=== PATIENT | female | born 1970 | race Caucasian/White ===

== ENCOUNTER 2023-11-29 13:41 | Emergency (ER) | payer OTHER, SELFPAY ==
[2023-11-29] VITALS (12 sets, daily range): BP systolic 155–156; BP diastolic 85–88; PULSE 95–109; RESP 14–22; TEMP 36.8; O2SAT 93–98; BMI 34.7
[2023-11-29 13:47] LABS: Glucometer 100 mg/dL (74-106)
--- NOTE | 2023-11-29 13:48 | ECG_ITS ---
[facility] Test Date: 2023-11-29 Pat Name: LUCIA LEBRON Department: Room: - Gender: Female Health Services Coordinator: : 1970 Requested By: Order Number: [id number] Reading MD: ALEXI ARCEO Measurements Intervals [place] Rate: 97 P: 78 [place]: 152 QRS: 94 QRSD: 84 T: 18 QT: 342 QTc: 396 Interpretive Statements [address]/T wave changes in inferolateral leads, myocardial ischemia can't be excluded 9130 borderline ECG No previous ECG available for comparison Electronically Signed On 11-30-2023 7:22:05 EST by ALEXI ARCEO
--- NOTE | 2023-11-29 13:49 | ED.GENADUL1 ---
HPI - General Adult General Chief complaint: Altered Mental Status Stated complaint: high blood sugar Time Seen by Provider: 11/29/23 13:45 Source: patient Mode of arrival: ambulance Limitations: no limitations History of Present Illness HPI narrative: [id number] female presented to the emergency department for status. Her daughter found her sitting on the floor and she called paramedics. They found that her blood sugar was high, nearly 500, and they transported her here. En route she became more responsive and is now fully oriented. She remembers working out this morning at the gym and did not eat much food. She does not have any physical complaints such as headache or chest pain. She states her legs hurt but that is from working out at the gym. Related Data Allergies Allergy/AdvReac Type Severity Reaction Status Date / Time No Known Drug Allergies Allergy Verified 11/29/23 13:47 Review of Systems ROS Narrative A ten point review of systems is negative except as noted above. PFSH PFSH Social History Smoking status: Never smoker Exam Narrative Exam Narrative: Nurses note and vital signs reviewed and patient is not hypoxic. General: The patient appears well and in no apparent distress. Patient is resting comfortably on cart. Skin: Warm, dry, no pallor noted. There is no rash noted. Head: Normocephalic, atraumatic Eye: Normal conjunctiva, no drainage Ears, Nose, Mouth, and Throat: oral mucosa is moist. Nares patent. Cardiovascular: Regular Rate and Rhythm Respiratory: Patient is in no distress, no accessory muscle use, lungs are clear to auscultation, no wheezing, rales or rhonchi Back: non-tender GI: Soft and nontender Musculoskeletal: The patient has no evidence of calf tenderness, no pitting edema, symmetrical pulses noted bilaterally Neurological: A&O, normal speech Psychiatric: Cooperative Constitutional Vital Signs, click to edit/add: Last Vital Signs Temp 98.2 F 11/29/23 13:42 Pulse 103 H 11/29/23 15:10 Resp 22 11/29/23 15:10 BP 156/85 H 11/29/23 13:45 Pulse Ox 96 11/29/23 15:10 O2 Del Method Room Air 11/29/23 13:42 Course Vital Signs Vital signs: Vital Signs Temperature 98.2 F 11/29/23 13:42 Pulse Rate 108 H 11/29/23 13:42 Respiratory Rate 16 11/29/23 13:42 Blood Pressure 156/85 H 11/29/23 13:42 Pulse Oximetry 97 11/29/23 13:42 Oxygen Delivery Method Room Air 11/29/23 13:42 Temperature 98.2 F 11/29/23 13:42 Pulse Rate 103 H 11/29/23 15:10 Respiratory Rate 22 11/29/23 15:10 Blood Pressure 156/85 H 11/29/23 13:45 Pulse Oximetry 96 11/29/23 15:10 Oxygen Delivery Method Room Air 11/29/23 13:42 Medical Decision Making MDM Narrative Medical decision making narrative: More history was obtained after the patient's daughter arrived. The patient also remembers better now as well. She had worked out at the gym and she believes that her blood sugar dropped. She had not eaten and just before the paramedics got there she had taken a pop tart and glucose gel and this is likely falsely and transiently elevated her blood sugar. She has been able to eat and her blood sugar is normalized and she is able to be discharged home. Treatment diagnosis and follow-up were discussed with the patient. Differential Diagnosis Differential Diagnosis: Hypoglycemia, hyperglycemia, syncope Lab Data Lab results reviewed: Yes I reviewed the patient's lab results Labs: Lab Results 11/29/23 11/29/23 Range/Units 13:45 13:50 WBC 15.7 H (4.0-11.0) 10^3/uL RBC 4.80 (4.20-5.40) 10^6/uL Hgb 13.5 (12.0-16.0) g/dL Hct 42.9 (36.0-48.0) % MCV 89.4 (81.0-99.0) fL MCH 28.1 (26.7-34.0) pg MCHC 31.5 (29.9-35.2) g/dL RDW 13.9 (11.0-15.0) % Plt Count 303 (150-450) 10^3/uL MPV 9.1 L (9.5-13.5) fL Neut % (Auto) 81.4 H (43.0-75.0) % Lymph % (Auto) 11.3 L (20.5-60.0) % [place] % (Auto) 5.7 (1.7-12.0) % Eos % (Auto) 0.7 L (0.9-7.0) % Baso % (Auto) 0.6 (0.2-2.0) % Neut # (Auto) 12.8 H (1.4-6.5) 10^3/uL Lymph # (Auto) 1.8 (1.2-3.8) 10^3/uL [place] # (Auto) 0.9 H (0.3-0.8) 10^3/uL Eos # (Auto) 0.1 (0.0-0.7) 10^3/uL Baso # (Auto) 0.1 (0.0-0.1) 10^3/uL Abs Immat Gran (auto) 0.05 H (0.00-0.03) 10^3/uL Imm/Tot Granulo (auto) 0.3 (0.0-0.5) % Sodium 139 (136-145) mmol/L Potassium 4.0 (3.5-5.1) mmol/L Chloride 103 (98-107) mmol/L Carbon Dioxide 29.5 (21.0-32.0) mmol/L Anion Gap 10.5 BUN 24.0 H (7.0-18.0) mg/dL Creatinine 1.03 H (0.55-1.02) mg/dL Est GFR ( Amer) >60 (>=60) Est GFR (Non-Af Amer) 56 L (>=60) BUN/Creatinine Ratio 23.3 Glucose 68 L (74-106) mg/dL Calcium 9.2 (8.5-10.1) mg/dL POC Glucose 100 (74-106) mg/dL ECG Data Attestation: I personally reviewed and interpreted this ECG as follows: (EKG on my interpretation shows normal sinus rhythm with no acute changes and a rate of 97.) Discharge Plan Discharge Chief Complaint: Altered Mental Status Clinical Impression: Hypoglycemia Patient Disposition: Home, Self-Care Time of Disposition Decision: 15:30 Condition: Good Mode of Transportation: Private Vehicle Instructions: Hypoglycemia in a Person with Diabetes (ED) Stand Alone Forms: Portal Instructions Referrals: OSORIO WHITESIDE [Physician] - 1 week
[2023-11-29 14:00] LABS: Basophils Absolute Auto 0.1 10^3/uL (0.0-0.1); Basophils Percent Auto 0.6 % (0.2-2.0); Eosinophils Absolute Auto 0.1 10^3/uL (0.0-0.7); Eosinophils Percent Auto 0.7 % (0.9-7.0); Hematocrit 42.9 % (36.0-48.0); Hemoglobin 13.5 g/dL (12.0-16.0); Immature Granulocytes Abs Auto 0.05 10^3/uL (0.00-0.03); Immature Granulocytes Pct Auto 0.3 % (0.0-0.5); Lymphocytes Absolute Auto 1.8 10^3/uL (1.2-3.8); Lymphocytes Percent Auto 11.3 % (20.5-60.0); Mean Corpuscular HGB Conc 31.5 g/dL (29.9-35.2); Mean Corpuscular Hemoglobin 28.1 pg (26.7-34.0); Mean Corpuscular Volume 89.4 fL (81.0-99.0); Mean Platelet Volume 9.1 fL (9.5-13.5); Monocytes Absolute Auto 0.9 10^3/uL (0.3-0.8); Monocytes Percent Auto 5.7 % (1.7-12.0); Neutrophils Absolute Auto 12.8 10^3/uL (1.4-6.5); Neutrophils Percent Auto 81.4 % (43.0-75.0); Platelet Count 303 10^3/uL (150-450); Red Cell Distribution Width 13.9 % (11.0-15.0); White Blood Count 15.7 10^3/uL (4.0-11.0)
[2023-11-29 14:09] LABS: Anion Gap 10.5; BUN Creatinine Ratio 23.3; Calcium 9.2 mg/dL (8.5-10.1); Carbon Dioxide 29.5 mmol/L (21.0-32.0); Chloride 103 mmol/L (98-107); Estimated GFR (African America >60 (>=60); Estimated GFR (Non-African Ame 56 (>=60); Glucose 68 mg/dL (74-106); Sodium 139 mmol/L (136-145)
[2023-11-29 15:40] LABS: Glucometer 171 mg/dL (74-106)
== END 2023-11-29 15:52 | disposition home or self-care (01) ==
PROVIDERS: Emergency Provider Emergency Medicine
DX: E11.649 Type 2 diabetes mellitus with hypoglycemia without coma (principal)
CPT/HCPCS: 36415; 36416; 80048; 82948; 85025; 93005; 99284

== ENCOUNTER 2025-08-19 09:57 | Emergency (ER) | payer OTHER, SELFPAY ==
[2025-08-19 09:58] VITALS: BP 192/99; PULSE 98; TEMP 36.6; O2SAT 97; BMI 31.9
--- NOTE | 2025-08-19 10:15 | ED_ITS ---
HPI HPI - General Adult General Chief complaint: Recheck/Abnormal Lab/Rx Stated complaint: HYPOGLYCEMIA Time Seen by Provider: 08/19/25 09:58 Source: patient Mode of arrival: walk-in Limitations: no limitations History of Present Illness HPI narrative: Patient is a 54-year-old female, history significant for insulin-dependent type 2 diabetes, presenting to the emergency department for evaluation of a hypoglycemic event. Patient works as a enterprise application developer, and was cleaning when she became diaphoretic, nauseous, and lightheaded. At work, they checked her blood glucose which was noted to be 35. She took sugar tablets and EMS was called. On arrival to our ED, her blood sugar is 88. She is now back to her baseline and has no acute complaints. She denies chest pain, shortness of breath, a bdominal pain, nausea, vomiting, or any other concerns. She takes 70/30 insulin 24 units, with no recent changes in her dosing. She took her insulin a few hours ago. She is on no other diabetic medications, not on a sulfonylurea. Related Data Allergies Allergy/AdvReac Type Severity Reaction Status Date / Time No Known Drug Allergies Allergy Verified 08/19/25 09:58 Opioid HPI Opioid Management Most Recent Opioid Data: Last Pain Scale 6 11/29/23, 13:50 Review of Systems ROS Status of ROS 10 or more systems reviewed and unremark able except as noted in history and below PFSH PFSH Social History Smoking status: Never smoker Little interest or pleasure in doing things: not at all Feeling down, depressed, or hopeless: not at all Exam Narrative Exam Narrative: CONSTITUTIONAL: Well-appearing, answering questions and following commands appropriately SKIN: Was warm and dry. EYES: Sclerae white. EARS, NOSE, THROAT: Moist oral mucosa. RESPIRATORY: Clear to auscultation bilaterally, no wheezes, crackles, or stridor, no use of accessory muscles CARDIOVASCULAR: Normal rate and regular rhythm. There is no S3, S4, murmur, rub. GASTROINTESTINAL: Abdomen is nondistended. MUSCULOSKELETAL: No peripheral edema. NEUROLOGIC: Patient is awake and alert. Facies were symmetrical. Constitutional Vital Signs, click to edit/add: Last Vital Signs Temp 97.8 F 08/19/25 09:58 Pulse 110 H 08/19/25 12:07 Resp 16 08/19/25 12:07 BP 168/102 H 08/19/25 12:07 Pulse Ox 98 08/19/25 12:07 O2 Del Method Room Air 08/19/25 12:07 Course Vital Signs Vital signs: Vital Signs Temperature 97.8 F 08/19/25 09:58 Pulse Rate 98 H 08/19/25 09:58 Respiratory Rate 18 08/19/25 09:58 Blood Pressure 192/99 H 08/19/25 09:58 Pulse Oximetry 97 08/19/25 09:58 Oxygen Delivery Method Room Air 08/19/25 09:58 Temperature 97.8 F 08/19/25 09:58 Pulse Rate 110 H 08/19/25 12:07 Respiratory Rate 16 08/19/25 12:07 Blood Pressure 168/102 H 08/19/25 12:07 Pulse Oximetry 98 08/19/25 12:07 Oxygen Delivery Method Room Air 08/19/25 12:07 Medical Decision Making MDM Narrative Medical decision making narrative: Patient is a 54-year-old female, history significant for insulin-dependent type 2 diabetes, presenting to the emergency department from work for hypoglycemic event. She was noted to be hypoglycemic to 35 while at work, took 3 sugar tablets, and no other blood glucose of 88 here in the ED. She is awake, alert, mentating appropriately and is currently asymptomatic and at her baseline. The patient believes the hypoglycemic event was because she did not eat enough food this morning, and also overexerted herself at work. She was given juice, crackers, granola bar, which she tolerated without issues. Repeat blood glucose after 45 minutes demonstrated maintenance of her blood glucose level at 123. I do believe the patient is stable for discharge. They were instructed to follow up with her PCP for further diabetic management. Return precautions were given including any new or worsening symptoms. Patient is a safe ride home. Patient understands and agrees to the plan. FINAL IMPRESSION: #Acute hypoglycemia, resolved #History of insulin-dependent type 2 diabetes DISPOSITION: Discharged home CONDITION: Good Medical Records Medical records reviewed: Yes I reviewed the patient's medical records Lab Data Lab results reviewed: Yes I reviewed the patient's lab results Labs: Lab Results 08/19/25 08/19/25 Range/Units 10:01 11:07 POC Glucose 88 123 H (74-106) mg/dL Discharge Plan Discharge Chief Complaint: Recheck/Abnormal Lab/Rx Clinical Impression: Hypoglycemia Patient Disposition: Home, Self-Care Time of Disposition Decision: 11:56 Condition: Good Mode of Transportation: Private Vehicle Print Language: Martiniquais Instructions: Diabetes and Nutrition (ED) Referrals: Physician,Non-Staff, MD [Physician] - 1 week Discharge Date/Time: 08/19/25 12:10
[2025-08-19 10:42] VITALS: BP 188/125; PULSE 78; O2SAT 97
--- OUTSIDE RECORDS SUMMARY | 2025-08-19 10:56 | XMS_ITS | Clinical Summary ---
Author Organization [facility] Address [address] [place] [address] Care Team Providers Care Trademark Attorney Name Role Phone Unavailable Primary Care Provider Unavailabl e Social History Tobacco UseTypesPacks/DayYears UsedDateSmoking Tobacco: Never Assessed CommentsUnknownSex and Gender InformationValueDate RecordedSex Assigned at Not on fileLegal SxmOfnchf34/15/2023 11:01 PM EDTGender IdentityNot on file Sexual OrientationNot on file Plan of Treatment Not on file
--- OUTSIDE RECORDS SUMMARY | 2025-08-19 11:00 | XMS_ITS | CCD ---
Author Organization [facility] Inform ion Partnership [facility] Care Team Providers Care Head Stock Operator Name Role Phone DR OSORIO WHITESIDE Primary Care Unavailable DR GERMANIA WANG Consulting Unavailable VINOD ANN Attending Unavailable VINOD ANN Admitting Unavailable VINOD ANN Consulting Unavailable Problems Problem ClassificationProblemDateDocumented DateEpisodic/ChronicDiabetes mellitus with complications (4 sources)Type 2 diabetes mellitus with hypoglycemia without coma; Translations: [TYP 2 DM W/HYPOGLYCEMIA W/OCOMA]Onset: [id number] aftercare (1 source)meterman (current) use of insulin; Translations: [SENIOR LIVING CURRENT USE OF INSULIN]Onset: 15-90-0329OfrbwiouUusekdwn codes; unclassified (1 source)Disorientation, unspecified; Translations: [DISORIENTATION UNSPECIFIED]Onset: 09-33-3642Owgedfbk Results Test NameValueInterpretationReference RangeFacilityCBC AUTO DIFFon 05-23-2022 BASO #0.1 103/ulNormal0.0-0.1[facility] CenterComment on above:Performed By: #### CBC #### [facility] [address] [address] [address] Dick Hannahphils/100 WBC (Bld)0.6 %Normal0.2-2.0[facility] Comment on above:Performed By: #### CBC #### [facility] [address] [address] [address] Dick Pate #0.2 103/ulNormal0.0-0.7[facility] RehabilitationComment on above: Performed By: #### CBC #### [facility] [address] [address] [address] Dick Toureosinophils/100 WBC (Bld)2.4 %Normal0.9-7.0[facility] Comment on above:Performed By: #### CBC #### [facility] [address] [place] [address] Dr. Dick Tourerythrocyte distribution width (RBC) [Ratio]13.5 %Ypogzn20.0-15.0 [facility] RehabilitationComment on above:Performed By: #### CBC #### [facility] [address] [place] [address] Dr. Dick GuerraHematocrit (Bld) [Volume fraction]40.5 %Fyzbpr74.0-48.0[facility] RehabilitationComment on above:Performed By: #### CBC #### [facility] [address] [place] [address] Dr. Dick GuerraHemoglobin (Bld) [Mass/Vol]13.1 g/eBInnces13.0-16.0[facility] RehabilitationComment on above:Performed By: #### CBC #### [facility] [address] [place] [address] Dr. Dick GuerraIG #0.02 10e3/ulNormal0.00-0.03[facility] RehabilitationComment on above:Performed By: #### CBC #### [facility] [address] [place] [address] Dr. Dick GuerraIG %0.2 %Normal0.0-0.5[facility] RehabilitationComment on above: Performed By: #### CBC #### [facility] [address] [place] [address] Dr. Dick GascaMPH #2.0 103/ulNormal1.2-3.8[facility] RehabilitationComment on above:Performed By: #### CBC #### [facility] [address] [place] [address] Dr. Dick Gascamphocytes/100 WBC (Bld)23.8 %Mdevkn14.5-60.0[facility] RehabilitationComment on above:Performed By: #### CBC #### [facility] [address] [place] [address] Dr. Dick Roblero DIFF REQNONormalThe [facility] RehabilitationComment on above: Performed By: #### CBC #### [facility] [address] [place] [address] Dr. Dick Kline (RBC) [Entitic mass]28.2 elMcqnfc51.7-34.0[facility] RehabilitationComment on above:Performed By: #### CBC #### [facility] [address] [place] [address] Dr. Dick Kline (RBC) [Mass/Vol]32.3 g/hQWmdqjd93.9-35.2[facility] RehabilitationComment on above:Performed By: #### CBC #### [facility] [address] [place] [address] Dr. Dick Kline (RBC) [Entitic vol]87.1 tPXmcqss11.0-99.0[facility] RehabilitationComment on above:Performed By: #### CBC #### [facility] [address] [place] [address] Dr. Dick Stovall #0.6 103/ulNormal0.3-0.8[facility] RehabilitationComment on above:Performed By: #### CBC #### [facility] [address] [place] [address] Dr. Dick Shepardocytes/100 WBC (Bld)6.6 %Normal1.7-12.0[facility] Comment on above:Performed By: #### CBC #### [facility] [address] [place] [address] Dr. Dick Jacinto #5.6 103/ulNormal1.4-6.5[facility] RehabilitationComment on above:Performed By: #### CBC #### [facility] [address] [place] [address] Dr. Dick Mooreutrophils/100 WBC (Bld)66.4 %Aatxev34.0-75.0[facility] RehabilitationComment on above:Performed By: #### CBC #### [facility] [address] [address] [address] Dick Jaureguilet mean volume (Bld) [Entitic vol]9.0 fLCritically low 9.5-13.5The [facility] on above:Performed By: #### CBC #### [facility] [address] [place] [address] Dr. Dick GuerraPLT254 103/ihAcvfde922-443Pup [facility] on above: Performed By: #### CBC #### [facility] [address] [place] [address] Dr. Dick GuerraRBC4.65 106/ulNormal4.20-5.40The [facility] on above:Performed By: #### CBC #### [facility] [address] [place] [address] Dr. Dick GuerraWBC8.4 103/ulNormal4.0-11.0The [facility] on above: Performed By: #### CBC #### [facility] [address] [place] [address] Dr. Dick GuerraPROF 14(COMP METB)on 92-05-2355Ourouhb [Mass/Vol]3.6 g/dLNormal 3.4-5.0The [facility] on above:Performed By: #### CMP #### [facility] [address] [place] [address] Dr. Dick GuerraAlbumin/Globulin [Mass ratio]1.1 {ratio}NormalThe [facility] on above:Performed By: #### CMP #### [facility] [address] [place] [address] Dr. Dick Ram [Catalytic activity/Vol]69 U/XNqjxmc45-638Qdl [facility] on above:Performed By: #### CMP #### [facility] [address] [place] [address] Dr. Dick Christianson [Catalytic activity/Vol]23 U/KAztrwo02-95Vzm [facility] on above:Performed By: #### CMP #### [facility] [address] [address] [address] Dick GuerraAnion gap [Moles/Vol]11.4 mmol/LNormalOhiohealth Southeastern Medical Center Comment on above:Performed By: #### CMP #### [facility] [address] [address] [address] Dick GuerraAST [Catalytic activity/Vol]26 U/GRudzwb10-09Sfi [facility] RehabilitationComment on above:Performed By: #### CMP #### [facility] [address] [address] [address] Dick GuerraBilirubin [Mass/Vol]0.3 mg/dLNormal0.2-1.0[facility] Comment on above:Performed By: #### CMP #### [facility] [address] [address] [address] Dick GuerraCalcium [Mass/Vol]9.2 mg/dLNormal8.5-10.1The [facility] Comment on above:Performed By: #### CMP #### [facility] [address] [address] [address] Dick GuerraChloride [Moles/Vol]100 mmol/BQqnbcd05-654Ohs [facility] Comment on above:Performed By: #### CMP #### [facility] [address] [place] [address] Dr. Dick GuerraCO2 [Moles/Vol]28.0 mmol/DXfqjbp42.0-32.0[facility] Comment on above:Performed By: #### CMP #### [facility] [address] [address] [address] Dick GuerraCreatinine [Mass/Vol]0.91 mg/dLNormal0.55-1.02[facility] RehabilitationComment on above:Performed By: #### CMP #### [facility] [address] [address] [address] Jennings ChangEGFR-AF NEPALESE>60Normal>=60[facility] RehabilitationComment on above:Performed By: #### CMP #### [facility] [address] [address] [address] Dick ToureGFR-NON AF NEPALESE>60Normal>=60[facility] RehabilitationComment on above:Performed By: #### CMP #### [facility] [address] [address] [address] Dick GuerraGlobulin (S) [Mass/Vol]3.3 g/dLNormalThUniversity Hospitals Conneaut Medical CenterComment on above:Performed By: #### CMP #### [facility] [address] [address] [address] Dick GuerraGlucose [Mass/Vol]261 mg/dLCritically nedp76-931Hpb [facility] RehabilitationComment on above:Performed By: #### CMP #### [facility] [address] [place] [address] Dr. Dick GuerraPotassium [Moles/Vol]4.4 mmol/LNormal3.5-5.1[facility] Comment on above:Performed By: #### CMP #### [facility] [address] [address] [address] Dick GuerraProtein [Mass/Vol]6.9 g/dLNormal6.4-8.2[facility] Comment on above:Performed By: #### CMP #### [facility] [address] [place] [address] Dr. Dick GuerraSodium [Moles/Vol]135 mmol/LCritically jgl461-513Bll [facility] RehabilitationComment on above:Performed By: #### CMP #### [facility] [address] [place] [address] Dr. Dick GuerraUrea nitrogen [Mass/Vol]20.0 mg/dLCritically high7.0-18.0[facility] RehabilitationComment on above:Performed By: #### CMP #### [facility] [address] [place] [address] Dr. Dick Frances nitrogen/Creatinine [Mass ratio]22.0 mg/mgNormalThe [facility] RehabilitationComment on above:Performed By: #### CMP #### [facility] [address] [place] [address] Dr. Dick GuerraXR CHEST 1 Von 04-62-3357XG CHEST 1 VEXAMINATION: XR CHEST 1 V HISTORY: Altered mental status , hypoglycemia COMPARISON: No relevant comparison available. FINDINGS: LUNGS: No significant pulmonary parenchymal abnormalities. VASCULATURE: No increased pulmonary vasculature. PLEURA: No pneumothorax, effusion, or pleural thickening. CARDIAC: No cardiomegaly or cardiac silhouette abnormality. MEDIASTINUM: No visible mass or adenopathy. BONES: No fracture or visible bone lesion. OTHER: Negative. IMPRESSION: 1. No acute cardiopulmonary process. Electronically authenticated by: GERMANIA WANG Date: 2022-05-23 12:43[facility]1902[facility] [place] [address] [place] [address] XRay Report Signed Patient: Lucia Lebron MR#: [id number] : 1970 Acct:[id number] Age/Sex: 50 / F ADM Date: 02/05/21 Loc: [facility] [place] Room: Type: [facility] Attending Dr: John Conley DO Ordering Provider: John Conley DO Date of Service: 02/05/21 XR/XR knee LT 2V: S82.143A Copies to: John Conley DO XR knee LT 2V 02/05/2021 3:47 PM SIGNS AND SYMPTOMS: Status post fixation of bilateral tibial plateau fractures, follow-up PROTOCOL: Frontal and lateral radiograph of the left knee COMPARISON: 12/04/2020 FINDINGS: There is evidence of plate and screw fixation of a previous tibial plateau fractures. There is no change in alignment or hardware complication. Degenerative changes are noted in the weightbearing compartments, greatest medially. This is unchanged. There is mild patellofemoral joint space loss. There is a small joint effusion which is unchanged. XR/XR knee LT 2V IMPRESSION: There is evidence of plate and screw fixation of a previous tibial plateau fractures. There is no change in alignment or hardware complication. There is a similar small joint effusion. Impression dictated by: Federico Jordan M.D.02/05/2021 4:27 PM Dictation Location: [address] [place] [address] Transcribed By: LORRIE 02/05/211626 Dictated By: Federico Jordan II, MD 02/05/211625 Signed By: 02/05/211626[facility] Encounters Encounter DateEncounter TypeCare ProviderFacilityStart: 05-23-2022 End: 85-66-7512fdwfvvpbnaYJ OSORIO Ford FURLONGFacility:H1 Payers DatePayer CategoryPayerPolicy [id number] Summary Purpose Family History No Family History Records FoundNo Family History Records Found Advance Directives No Advanced Directives Records FoundNo Advanced Directives Records Found Additional Source Comments INFORMATION SOURCE (unrecogn ized section and content) DATE CREATED AUTHOR 12/17/2021 [facility] DATE CREATED AUTHOR AUTHOR'S TAWANA ATION 05/27/2022 [facility] FOR RECORDS PERTAINING TO PATIENTS WHO ARE OR HAVE BEEN ENROLLED IN A CHEMICAL DEPENDENCY/SUBSTANCEABUSE PROGRAM, SOME INFORMATION MAY BE OMITTED. This clinical summary was aggregated from multiple sources. Caution should be exercised in using it in the provision of clinical care. This summary normalizes information from multiple sources, and as a consequence, information in this document may materially change the coding, format and clinical context of patient data. In addition, data may be omitted in some cases. CLINICAL DECISIONS SHOULD BE BASED ON THE PRIMARY CLINICAL RECORDS. [facility] [employer] provides no warranty or guarantee of the accuracy or completeness of information in this document.
[2025-08-19 12:07] VITALS: BP 168/102; PULSE 110; O2SAT 98
== END 2025-08-19 12:10 | disposition home or self-care (01) ==
PROVIDERS: Emergency Provider Student in an Organized Health Care Education/Training Program; PCP Family Medicine
DX: E11.649 Type 2 diabetes mellitus with hypoglycemia without coma (principal); Z79.4 Long term (current) use of insulin
CPT/HCPCS: 36415; 99283